=== PATIENT | female | born 1945 | race Caucasian/White ===

== ENCOUNTER 2016-12-26 14:01 | Emergency (ER) | payer MEDICARE, BC ==
--- NOTE | ~2016-12-26 | EKG ---
PATIENT: ZHANG MOLINA UNIT #: [id number] Ventricular Rate: 65 BPM Atrial Rate: 65 BPM P-R Interval: 152 ms QRS Duration: 62 ms Q-T Interval: 406 ms QTC Calculation(Bezet): 422 ms P Clark[place]: 83 degrees Calculated R Clark[place]: 31 degrees Calculated T Clarkrange: 57 degrees Diagnosis Line: Normal sinus rhythm Diagnosis Line: Normal ECG Diagnosis Line: No previous ECGs available Diagnosis Line: Confirmed by GOMEZ HAYES MD ([id number]) on 12/27/2016 Diagnosis Line: 4:31:56 PM INTERPRETING MD: ABIGAIL TOVAR
--- NOTE | ~2016-12-26 | CT71 ---
[facility] A Service of [facility] & [facility] RADIOLOGY TEXT RESULTS PATIENT: ZHANG MOLINA LOCATION: SED : 41 UNIT #: [id number] AGE: [address]: Emily Bright SEX: F ORDER DR: [id number] [address] [address] [id number] MR#: [id number] Acc #: [id number] NAME: ZHANG MOLINA. : 1945 SEX: F STUDY DATE/TIME: 12/26/2016 17:30 UNIT: SED ROOM: STUDY DESCRIPTION: CT Head Wo Contrast Attending Physician: Emily Bright Pa-C Ordering Physician: Emily Bright Pa-C Primary Care Physician: Priscilla Bowles M.D. MEDICAL IMAGING REPORT This report is preliminary unless electronic signature is present. EXAM CT head without contrast dated 12/26/2016. COMPARISON CT temporal bone dated 08/13/2013. No prior MRI or CT head. HISTORY High blood pressure at primary care physician's office today. Breast lumpectomy. Patient states that she is not feeling well. FINDINGS CT of the head was obtained without contrast in the axial plane as per the protocol. This CT exam was performed with one or more of the following radiation dose reduction techniques: automatic exposure control, adjustment of mA and/or kV according to patient size, and iterative reconstruction. No acute intracranial hemorrhage, space-occupying mass, mass effect, midline shift or hydrocephalus. Nasal septum is slightly deviated to the right. There is mild mucosal thickening in bilateral sphenoid sinuses. There is evidence of right mastoidectomy. Soft tissue density and probably fat are noted within the mastoidectomy defect, incompletely characterized. There is no adjacent significant soft tissue swelling overlying it in the region of the right external ear. The right middle ear ossicles do not have its normal anatomy. It could be postsurgical. There is probably a prosthetic stapes. Mild soft tissue density is noted in the right middle ear cavity close to the right external ear. Left mastoid air cells are well-aerated. Orbits with the ocular structures are unremarkable. IMPRESSION 1. Brain is unremarkable. 2. Postoperative changes are noted in the right mastoid suggestive of mastoidectomy. Correlate with operative note. Abnormal-looking right middle ear ossicles are present, which could also be STS. [facility] A Service of [facility] & [facility] RADIOLOGY TEXT RESULTS PATIENT: ZHANG MOLINA LOCATION: [facility] [place] 43 UNIT #: [id number] AGE: [address]: Emily Bright PAC SEX: F ORDER DR: prosthesis. Correlate with history. 3. Mild paranasal sinus mucosal thickening with nasal septal deviation to the right. Dictated by... Nancy Headley M.D. THIS IS AN ELECTRONICALLY VERIFIED REPORT Nancy Headley M.D. at 12/27/2016 3:04 PM CPR/pc TD: 12/27/2016 10:11 JOB #: [id number] MEDICAL IMAGING REPORT Page 1 of 1
[~2016-12-26 14:01] MED LIST: ACID REDUCER150 MG PO; ALLEGRA180 MG PO; BENEFIBER1 EACH; CALTRATE PLUS T1 TAB PO; CENTRUM SILVER PO; CETIRIZINE HCL10 MG PO; DICYCLOMINE HCL20 MG PO; ENFOLAST TABLE1 EACH; FOLIC ACID800 MCG PO; OMEPRAZOLE40 MG PO; SIMVASTATIN20 MG PO; TOPROL XL PO; VIT B12; VITAMIN B122500 MC1; VITAMIN D 4001 UDTAB PO
[2016-12-26 17:00] LABS: URINE SOURCE CLEAN CATCH
[2016-12-26 17:00] LABS: BASOPHIL% 0.7 % (0-2.5); EOSINOPHIL% 0.8 % (0.0-7.0); HEMATOCRIT 39.2 % (35.0-45.0); HEMOGLOBIN 13.6 gm/dL (12.0-16.0); LYMPHOCYTE# 1.5 X10e3 (1.0-3.5); LYMPHOCYTE% 29.7 % (17.0-45.0); MEAN CELL VOLUME 96.8 FL (83-96); MEAN CORPUSCULAR HEMOGLOBIN 33.6 PG (28-34); MEAN CORPUSCULAR HGB CONC 34.8 g/dL (30-36); MEAN PLATELET VOLUME 9.7 FL (6.5-11.5); MONOCYTE# 0.5 X10e3 (0-1.0); MONOCYTE% 9.5 % (3.0-12.0); NEUTROPHIL# 2.9 X10e3 (1.5-7.1); NEUTROPHIL% 59.3 % (40-75); PLATELET COUNT 118 X10e3 (140-420); RED BLOOD COUNT 4.05 X10e (3.90-5.30); RED CELL DISTRIBUTION WIDTH 12.6 % (11.0-15.5); WHITE BLOOD COUNT 4.9 X10e3 (4.0-10.5)
[2016-12-26 17:01] LABS: DIFF IND NO
[2016-12-26 17:02] LABS: URINE APPEARANCE CLEAR; URINE BILIRUBIN NEG (NEG); URINE BLOOD NEG (NEG); URINE COLOR YELLOW; URINE GLUCOSE NEG (NORM); URINE KETONE NEG (NEG); URINE LEUKOCYTE ESTERASE 1+ (NEG); URINE NITRATE NEG (NEG); URINE PROTEIN NEG (NEG); URINE UROBILINOGEN 0.2 MG/DL (NORM)
[2016-12-26 17:09] LABS: MICRO INDICATED? YES
[2016-12-26 17:12] LABS: POC - MYOGLOBIN 83.5 ng/mL (0.0-169.0); POC - TROPONIN <0.05 ng/mL (<=0.05)
[2016-12-26 17:13] LABS: CULTURE INDICATED? NO; URINE BACTERIA NEG (NEG); URINE RBC 0-2 /[HPF] (0-2); URINE WBC 0-2 /[HPF] (0-5)
[2016-12-26 17:31] LABS: ALBUMIN SERUM 4.8 g/dL (3.5-5.0); BILIRUBIN, DIRECT 0.1 mg/dL (0.0-0.2); BILIRUBIN,INDIRECT 0.5 mg/dL (0.0-0.9); BILIRUBIN,TOTAL 0.6 mg/dL (0.2-2.0); CALCIUM SERUM 8.6 mg/dL (8.4-10.2); GLOM FILT RATE Estimated 55.9 mL/min (>60); PROTEIN TOTAL SERUM 7.1 g/dL (6.0-8.3)
== END 2016-12-26 18:48 | disposition home or self-care (01) ==
LOC: SED 14:01
PROVIDERS: Physician Assistant Medical
DX: R03.0 Elevated blood-pressure reading, without diagnosis of hypertension (principal); E78.5 Hyperlipidemia, unspecified; K21.9 Gastro-esophageal reflux disease without esophagitis; Z98.51 Tubal ligation status; Z88.8 Allergy status to other drugs, medicaments and biological substances; Z79.899 Other long term (current) drug therapy
CPT/HCPCS: 36415; 70450; 80048; 80076; 81003; 82553; 83874; 84484; 85025; 93005; 99284